=== PATIENT | female | born 1935 | race African-American/Black ===

== ENCOUNTER 2017-01-28 05:03 | Inpatient (IN) | payer MEDICARE, MEDICAID ==
[2017-01-28] MEDS ORDERED: ZOFRAN IV ONE (07:13)
--- NOTE | 2017-01-28 07:41 | XRay Report ---
FINAL REPORT EXAM: XR CHEST 1V AP HISTORY: hypertension TECHNIQUE: A portable upright view of the chest was submitted. There are no previous studies available for comparison. FINDINGS: The lungs are hyperinflated. The heart is mildly enlarged. The lungs are not congested. There is a nodule superimposed over the right lung base. Whether this represents a true nodule or a prominent nipple shadow is uncertain. Pleural fluid is not seen. The bones and soft tissues do not show any acute changes. IMPRESSION: COPD. Cardiomegaly. Nipple shadow versus lung nodule in the right lung base. The study should be repeated with nipple markers and to include a lateral view.
[2017-01-28 07:44] LABS: Basophils % (Auto) 0.2 % (0.0-1.8); Eosinophils % (Auto) 0.1 % (0.0-4.3); Hematocrit 40.2 % (30.3-42.9); Hemoglobin 13.3 gm/dl (10.1-14.3); Mean Corpuscular HGB Conc 33 % (30-34); Mean Corpuscular Hemoglobin 32 pg (28-32); Mean Corpuscular Volume 95 fl (79-97); Platelet Count 177 K/mm3 (140-440); Red Blood Count 4.21 M/mm3 (3.65-5.03); Red Cell Distribution Width 12.5 % (13.2-15.2); White Blood Count 5.3 K/mm3 (4.5-11.0)
--- NOTE | 2017-01-28 07:46 | Cat Scan Report ---
FINAL REPORT EXAM: CT HEAD/BRAIN WO CON HISTORY: headache TECHNIQUE: Routine axial imaging was obtained of the brain without IV contrast. FINDINGS: There is uhly-wl-[id number] generalized atrophy. There is no evidence of acute stroke or hemorrhage. The ventricular system is appropriate in size and is symmetric. The basal cisterns appear normal. There are benign basal ganglial calcifications bilaterally. The visualized sinuses are clear. The mastoid air cells are well pneumatized. The calvarium appears intact. IMPRESSION: [id number] generalized atrophy. No evidence of acute stroke or hemorrhage.
[2017-01-28 07:54] LABS: Anion Gap 19 mmol/L; BUN/Creatinine Ratio 20; Blood Urea Nitrogen 16 mg/dL (7-17); Calcium 8.8 mg/dL (8.4-10.2); Carbon Dioxide 27 mmol/L (22-30); Chloride 99.1 mmol/L (98-107); Glucose 95 mg/dL (65-100); INR 0.88 (0.87-1.13); Potassium 4.1 mmol/L (3.6-5.0); Sodium 141 mmol/L (137-145)
[2017-01-28 07:55] LABS: Creatine Kinase MB 2.1 ng/mL (0.0-4.0); Partial Thromboplastin Time 31.9 Sec. (24.2-36.6)
[2017-01-28 07:56] LABS: Alanine Aminotransferase 28 units/L (7-56); Albumin 4.3 g/dL (3.9-5); Albumin/Globulin Ratio 1.3 %; Alkaline Phosphatase 43 units/L (35-129); Creatine Kinase 90 units/L (30-135); Total Protein 7.5 g/dL (6.3-8.2)
--- NOTE | 2017-01-28 07:56 | Emergency Department Report ---
ED General Adult HPI - General Chief complaint: Nausea/Vomiting/Diarrhea Stated complaint: VOMITING/DIZZINESS Time Seen by Provider: 01/28/17 07:12 Source: family, EMS Mode of arrival: Stretcher Limitations: Language Barrier - History of Present Illness Initial comments: According to the patient's daughter she complained of a headache and vomiting at about 3 in the morning. She had dizziness and vertigo. The patient is known to be hypertensive and is compliant with her medication. The family member denies history of renal insufficiency or previous myocardial infarction. There is no history of prior stroke. -: During the night Location: head Severity scale (0 -10): 4 Consistency: now resolved Improves with: none Worsens with: none Associated Symptoms: denies other symptoms Treatments Prior to Arrival: none - Related Data Home Medications Medication Instructions Recorded Confirmed Last Taken Alendronate Sodium [Fosamax] 70 mg PO QWEEK 07/20/13 12/18/14 2 Days Ago ~12/16/14 Atorvastatin (Nf) [Lipitor] 10 mg PO QHS 07/20/13 12/18/14 2 Days Ago ~12/16/14 Hydrochlorothiazide [HCTZ] 25 mg PO QDAY 07/20/13 12/18/14 2 Days Ago ~12/16/14 Citracal + D3 Gummies 1 tab PO DAILY 12/10/14 12/18/14 2 Days Ago ~12/16/14 HCTZ 25 mg PO DAILY 12/10/14 12/18/14 2 Days Ago ~12/16/14 Loratadine 10 mg PO DAILY 12/10/14 12/18/14 2 Days Ago ~12/16/14 Ranitidine HCl 150 mg PO BID 12/10/14 12/18/14 2 Days Ago ~12/16/14 traMADol 50 mg PO PRN PRN 12/10/14 12/18/14 2 Days Ago ~12/16/14 Previous Rx's Medication Instructions Recorded Last Taken Type amLODIPine [Norvasc] 5 mg PO DAILY #30 tab 07/20/13 2 Days Ago Rx ~12/16/14 Allergies Allergy/AdvReac Type Severity Reaction Status Date / Time No Known Allergies Allergy Verified 07/20/13 02:58 ED Review of Systems ROS: Stated complaint: VOMITING/DIZZINESS Other details as noted in HPI Constitutional: denies: chills, fever Eyes: denies: eye pain, eye discharge, vision change ENT: denies: ear pain, throat pain Respiratory: denies: cough, shortness of breath, wheezing Cardiovascular: denies: chest pain, palpitations Endocrine: no symptoms reported Gastrointestinal: denies: abdominal pain, nausea, diarrhea Genitourinary: denies: urgency, dysuria, discharge Musculoskeletal: denies: back pain, joint swelling, arthralgia Skin: denies: rash, lesions Neurological: vertigo. denies: headache, weakness, numbness, paresthesias Psychiatric: denies: anxiety, depression Hematological/Lymphatic: denies: easy bleeding, easy bruising ED Past Medical Hx - Past Medical History Previous Medical History?: Yes Hx Hypertension: Yes Hx GERD: Yes Additional medical history: high cholesterol - Surgical History Past Surgical History?: No - Social History Smoking Status: Never Smoker Substance Use Type: None - Medications Home Medications: Home Medications Medication Instructions Recorded Confirmed Last Taken Type Alendronate Sodium [Fosamax] 70 mg PO QWEEK 07/20/13 12/18/14 2 Days Ago History ~12/16/14 Atorvastatin (Nf) [Lipitor] 10 mg PO QHS 07/20/13 12/18/14 2 Days Ago History ~12/16/14 Hydrochlorothiazide [HCTZ] 25 mg PO QDAY 07/20/13 12/18/14 2 Days Ago History ~12/16/14 amLODIPine [Norvasc] 5 mg PO DAILY #30 tab 07/20/13 12/18/14 2 Days Ago Rx ~12/16/14 Citracal + D3 Gummies 1 tab PO DAILY 12/10/14 12/18/14 2 Days Ago History ~12/16/14 HCTZ 25 mg PO DAILY 12/10/14 12/18/14 2 Days Ago History ~12/16/14 Loratadine 10 mg PO DAILY 12/10/14 12/18/14 2 Days Ago History ~12/16/14 Ranitidine HCl 150 mg PO BID 12/10/14 12/18/14 2 Days Ago History ~12/16/14 traMADol 50 mg PO PRN PRN 12/10/14 12/18/14 2 Days Ago History ~12/16/14 ED Physical Exam - General Limitations: Language Barrier General appearance: alert, in no apparent distress - Head Head exam: Present: atraumatic, normocephalic - Eye Eye exam: Present: normal appearance. Absent: scleral icterus - ENT ENT exam: Present: mucous membranes moist - Neck Neck exam: Present: normal inspection. Absent: tenderness, meningismus - Respiratory Respiratory exam: Present: normal lung sounds bilaterally. Absent: respiratory distress - Cardiovascular Cardiovascular Exam: Present: regular rate, normal rhythm. Absent: systolic murmur, diastolic murmur, rubs, gallop - GI/Abdominal GI/Abdominal exam: Present: soft, normal bowel sounds. Absent: distended, tenderness, guarding, rebound, rigid - Extremities Exam Extremities exam: Present: normal inspection - Back Exam Back exam: Present: normal inspection - Neurological Exam Neurological exam: Present: alert, oriented X3, CN II-XII intact. Absent: motor sensory deficit - Psychiatric Psychiatric exam: Present: normal affect, normal mood - Skin Skin exam: Present: warm, dry, intact, normal color. Absent: rash ED Course Vital Signs 01/28/17 01/28/17 01/28/17 06:10 07:26 07:30 Temperature 98.8 F 98.8 F Pulse Rate 75 67 67 Respiratory 18 14 14 Rate Blood Pressure 173/87 150/79 [Left] O2 Sat by Pulse 99 98 98 Oximetry - Reevaluation(s) Reevaluation #1: I discussed the case with Dr. Johnson. Dr. Perez to admit. 01/28/17 09:08 ED Medical Decision Making - Lab Data Result diagrams: 01/28/17 07:17 01/28/17 07:17 Laboratory Results - last 24 hr 01/28/17 01/28/17 01/28/17 07:17 07:17 07:17 WBC 5.3 RBC 4.21 Hgb 13.3 Hct 40.2 MCV 95 MCH 32 MCHC 33 RDW 12.5 L Plt Count 177 Lymph % (Auto) 10.2 L [place] % (Auto) 5.2 Eos % (Auto) 0.1 Baso % (Auto) 0.2 Lymph # 0.5 L [place] # 0.3 Eos # 0.0 Baso # 0.0 Seg Neutrophils % 84.3 H Seg Neutrophils # 4.5 PT 12.4 INR 0.88 APTT 31.9 Sodium 141 Potassium 4.1 Chloride 99.1 Carbon Dioxide 27 Anion Gap 19 BUN 16 Creatinine 0.8 Estimated GFR > 60 BUN/Creatinine Ratio 20 Glucose 95 Calcium 8.8 Magnesium Total Bilirubin Direct Bilirubin Indirect Bilirubin AST ALT Alkaline Phosphatase Total Creatine Kinase CK-MB (CK-2) CK-MB (CK-2) Rel Index Troponin T NT-Pro-B Natriuret Pep Total Protein Albumin Albumin/Globulin Ratio 01/28/17 07:17 WBC RBC Hgb Hct MCV MCH MCHC RDW Plt Count Lymph % (Auto) [place] % (Auto) Eos % (Auto) Baso % (Auto) Lymph # [place] # Eos # Baso # Seg Neutrophils % Seg Neutrophils # PT INR APTT Sodium Potassium Chloride Carbon Dioxide Anion Gap BUN Creatinine Estimated GFR BUN/Creatinine Ratio Glucose Calcium Magnesium 2.00 Total Bilirubin 0.30 Direct Bilirubin < 0.2 Indirect Bilirubin 0.1 AST 34 ALT 28 Alkaline Phosphatase 43 Total Creatine Kinase 90 CK-MB (CK-2) 2.1 CK-MB (CK-2) Rel Index 2.3 Troponin T < 0.010 NT-Pro-B Natriuret Pep 186.1 Total Protein 7.5 Albumin 4.3 Albumin/Globulin Ratio 1.3 - EKG Data -: EKG Interpreted by Me EKG shows normal: sinus rhythm - EKG Data Interpretation: other (right bundle branch block, left anterior fascicular block , bifascicular block) - Radiology Data Radiology results: report reviewed interpreted by me: CT head no acute process, chest x-ray nipple shadow versus nodule Critical care attestation.: If time is entered above; I have spent that time in minutes in the direct care of this critically ill patient, excluding procedure time. ED Disposition Clinical Impression: Vertigo, Bifascicular block, Uncontrolled hypertension, Cachexia Disposition: -09 OP ADMIT IP TO THIS HOSP Is pt being admited?: Yes Does the pt Need Aspirin: Yes Condition: Stable Instructions: Hypertension (ED) Referrals: SEAN NORIEGA MD [Primary Care Provider] - 3-5 Days Time of Disposition: 08:35
[2017-01-28] MEDS ORDERED: NACL 0.9% 1000 ML 1,000 ML IV ONE (08:00)
[2017-01-28 08:09] LABS: Bilirubin,Direct < 0.2 mg/dL (0-0.2); Bilirubin,Indirect 0.1 mg/dL
[2017-01-28] MEDS ORDERED: ANTIVERT PO ONE (08:14)
[2017-01-28] MEDS ORDERED: BABY ASPIRIN PO ONE (08:35)
[2017-01-28] MEDS ORDERED: DUONEB *Not for PRN Use IH ONE ×2 (09:31→09:32)
[2017-01-28] MEDS ORDERED: APRESOLINE IV PRN (10:30)
--- NOTE | 2017-01-28 10:30 | History and Physical Report ---
History of Present Illness Date of admission: 01/28/17 08:42 Chief complaint: vertigo History of present illness: 81 year old woman who presents from home. History was done using an top tile decorator. And history was taken from the patient on the patient's son. Apparently at about 2 a.m, The patient woke up was having vertigo, felt that the room was spinning, became nauseous and then vomited. It appeared at that time to the symptoms had resolved, . But shortly after she had vertigo again , assoc with BRODERICK and vomited again. Prompting had to come to the hospital. Past medical history significant for hypertension come on hyperlipidemia, gerd , erosive gastritis diagnose an EGD Past History Past Medical History: GERD (erosive gastritis), hypertension, hyperlipidemia Past Surgical History: No surgical history Social history: lives with family Family history: hypertension Medications and Allergies Allergies Allergy/AdvReac Type Severity Reaction Status Date / Time No Known Allergies Allergy Verified 07/20/13 02:58 Home Medications Medication Instructions Recorded Confirmed Last Taken Type Alendronate Sodium [Fosamax] 70 mg PO QWEEK 07/20/13 01/28/17 2 Days Ago History ~12/16/14 Atorvastatin (Nf) [Lipitor] 10 mg PO QHS 07/20/13 01/28/17 2 Days Ago History ~12/16/14 Hydrochlorothiazide [HCTZ] 25 mg PO QDAY 07/20/13 01/28/17 2 Days Ago History ~12/16/14 amLODIPine [Norvasc] 5 mg PO DAILY #30 tab 07/20/13 01/28/17 2 Days Ago Rx ~12/16/14 Citracal + D3 Gummies 1 tab PO DAILY 12/10/14 01/28/17 2 Days Ago History ~12/16/14 HCTZ 25 mg PO DAILY 12/10/14 01/28/17 2 Days Ago History ~12/16/14 Loratadine 10 mg PO DAILY 12/10/14 01/28/17 2 Days Ago History ~12/16/14 Ranitidine HCl 150 mg PO BID 12/10/14 01/28/17 2 Days Ago History ~12/16/14 traMADol 50 mg PO PRN PRN 12/10/14 01/28/17 2 Days Ago History ~12/16/14 Active Meds: Active Medications Sodium Chloride (Nacl 0.9% 1000 Ml) 1,000 mls @ 75 mls/hr IV ONCE ONE Stop: 01/28/17 21:19 Last Admin: 01/28/17 09:01 Dose: 75 mls/hr Review of Systems All systems: negative (14 system review is otherwise negative) Gastrointestinal: nausea, vomiting Neurological: vertigo, other (strange sensation, ?ringing in R ear) Exam - Constitutional Vitals: Temp Pulse Resp BP Pulse Ox 98.8 F 82 18 150/79 98 01/28/17 07:30 01/28/17 09:51 01/28/17 09:51 01/28/17 07:30 01/28/17 07:30 General appearance: Present: no acute distress, well-nourished - EENT Eyes: Present: PERRL ENT: hearing intact, clear oral mucosa - Neck Neck: Present: supple, normal ROM - Respiratory Respiratory effort: normal Respiratory: bilateral: CTA - Cardiovascular Heart Sounds: Present: S1 & S2. Absent: rub, click - Extremities Extremities: pulses symmetrical, No edema Peripheral Pulses: within normal limits - Abdominal General gastrointestinal: Present: soft, non-tender, non-distended, normal bowel sounds Female genitourinary: Present: normal - Integumentary Integumentary: Present: clear, warm, dry - Musculoskeletal Musculoskeletal: gait normal, strength equal bilaterally - Psychiatric Psychiatric: appropriate mood/affect, intact judgment & insight - Neurologic Neurologic: CNII-XII intact, moves all extremities, other (unsteady gait) Results - Labs CBC & Chem 7: 01/29/17 04:44 01/29/17 04:44 Labs: Laboratory Last Values WBC 5.3 K/mm3 (4.5-11.0) 01/28/17 07:17 RBC 4.21 M/mm3 (3.65-5.03) 01/28/17 07:17 Hgb 13.3 gm/dl (10.1-14.3) 01/28/17 07:17 Hct 40.2 % (30.3-42.9) 01/28/17 07:17 MCV 95 fl (79-97) 01/28/17 07:17 MCH 32 pg (28-32) 01/28/17 07:17 MCHC 33 % (30-34) 01/28/17 07:17 RDW 12.5 % (13.2-15.2) L 01/28/17 07:17 Plt Count 177 K/mm3 (140-440) 01/28/17 07:17 Lymph % (Auto) 10.2 % (13.4-35.0) L 01/28/17 07:17 [place] % (Auto) 5.2 % (0.0-7.3) 01/28/17 07:17 Eos % (Auto) 0.1 % (0.0-4.3) 01/28/17 07:17 Baso % (Auto) 0.2 % (0.0-1.8) 01/28/17 07:17 Lymph # 0.5 K/mm3 (1.2-5.4) L 01/28/17 07:17 [place] # 0.3 K/mm3 (0.0-0.8) 01/28/17 07:17 Eos # 0.0 K/mm3 (0.0-0.4) 01/28/17 07:17 Baso # 0.0 K/mm3 (0.0-0.1) 01/28/17 07:17 Seg Neutrophils % 84.3 % (40.0-70.0) H 01/28/17 07:17 Seg Neutrophils # 4.5 K/mm3 (1.8-7.7) 01/28/17 07:17 PT 12.4 Sec. (12.2-14.9) 01/28/17 07:17 INR 0.88 (0.87-1.13) 01/28/17 07:17 APTT 31.9 Sec. (24.2-36.6) 01/28/17 07:17 Sodium 141 mmol/L (137-145) 01/28/17 07:17 Potassium 4.1 mmol/L (3.6-5.0) 01/28/17 07:17 Chloride 99.1 mmol/L (98-107) 01/28/17 07:17 Carbon Dioxide 27 mmol/L (22-30) 01/28/17 07:17 Anion Gap 19 mmol/L 01/28/17 07:17 BUN 16 mg/dL (7-17) 01/28/17 07:17 Creatinine 0.8 mg/dL (0.7-1.2) 01/28/17 07:17 Estimated GFR > 60 ml/min 01/28/17 07:17 BUN/Creatinine Ratio 20 % 01/28/17 07:17 Glucose 95 mg/dL (65-100) 01/28/17 07:17 Calcium 8.8 mg/dL (8.4-10.2) 01/28/17 07:17 Magnesium 2.00 mg/dL (1.7-2.3) 01/28/17 07:17 Total Bilirubin 0.30 mg/dL (0.1-1.2) 01/28/17 07:17 Direct Bilirubin < 0.2 mg/dL (0-0.2) 01/28/17 07:17 Indirect Bilirubin 0.1 mg/dL 01/28/17 07:17 AST 34 units/L (5-40) 01/28/17 07:17 ALT 28 units/L (7-56) 01/28/17 07:17 Alkaline Phosphatase 43 units/L (35-129) 01/28/17 07:17 Total Creatine Kinase 90 units/L (30-135) 01/28/17 07:17 CK-MB (CK-2) 2.1 ng/mL (0.0-4.0) 01/28/17 07:17 CK-MB (CK-2) Rel Index 2.3 (0-4) 01/28/17 07:17 Troponin T < 0.010 ng/mL (0.00-0.029) 01/28/17 07:17 NT-Pro-B Natriuret Pep 186.1 pg/mL (0-900) 01/28/17 07:17 Total Protein 7.5 g/dL (6.3-8.2) 01/28/17 07:17 Albumin 4.3 g/dL (3.9-5) 01/28/17 07:17 Albumin/Globulin Ratio 1.3 % 01/28/17 07:17 - Imaging and Cardiology Chest x-ray: image reviewed (no acute pathology) CT Scan - head: image reviewed (no acute findings) Assessment and Plan Assessment and plan: 81F who presents with vertigo assoc with Vomiting Vertigo: etiology is likely from inner ear meclizine, supportive care, Anti-emetics as needed hold hct as may be contributing to inner ear syndrome Vomiting due to vertigo, rx as above Htn urgency restart home meds -prn hydralazine as needed GERD continue PPI dvt ppx lmwh Plan of care discussed with patient/family: Yes
[2017-01-28] MEDS ORDERED: ZOFRAN IV PRN (11:17)
[2017-01-28] MEDS ORDERED: DULCOLAX PR PRN (11:17)
[2017-01-28] MEDS ORDERED: TYLENOL PO PRN (11:17)
[2017-01-28] MEDS ORDERED: NACL 0.9% 1000 ML 1,000 ML IV SCH (12:00)
--- NOTE | 2017-01-28 12:25 | XRay Report ---
Chest 2 views: Findings: Borderline cardiomegaly. Trachea is midline. Evidence of emphysema. No acute consolidation or pleural effusion. Impression: Emphysema. No acute lung changes.
[2017-01-28] MEDS: PEPCID PO SCH ×2 (16:46→22:10)
[2017-01-28] MEDS ORDERED: NON-FORMULARY (Ranitidine Hcl 150 MG) PO SCH (22:00)
[2017-01-29 05:34] LABS: Basophils % (Auto) 0.5 % (0.0-1.8); Eosinophils % (Auto) 1.3 % (0.0-4.3); Hematocrit 38.4 % (30.3-42.9); Hemoglobin 12.6 gm/dl (10.1-14.3); Mean Corpuscular HGB Conc 33 % (30-34); Mean Corpuscular Hemoglobin 32 pg (28-32); Mean Corpuscular Volume 96 fl (79-97); Platelet Count 170 K/mm3 (140-440); Red Blood Count 4.01 M/mm3 (3.65-5.03); Red Cell Distribution Width 12.4 % (13.2-15.2); White Blood Count 4.2 K/mm3 (4.5-11.0)
[2017-01-29 05:53] LABS: Calcium 7.9 mg/dL (8.4-10.2); Chloride 108.1 mmol/L (98-107); Potassium 3.9 mmol/L (3.6-5.0)
[2017-01-29] MEDS ORDERED: ANTIVERT PO PRN (06:12)
[2017-01-29 08:04] LABS: Bilirubin,Urine NEG (Negative); Blood,Urine NEG (Negative); Ketones,Urine NEG (Negative); Leukocyte Esterase,Urine NEG (Negative); Nitrite,Urine NEG (Negative); Protein,Urine <15 mg/dL mg/dL (Negative); RBC,Urine < 1.0 /HPF (0.0-6.0); Urobilinogen,Urine < 2.0 mg/dL (<2.0); WBC,Urine < 1.0 /HPF (0.0-6.0)
[2017-01-29] MEDS: PEPCID PO SCH ×2 (09:50→22:56)
[2017-01-29] MEDS ORDERED: NON-FORMULARY (Hctz 25 MG) PO SCH (10:00)
[2017-01-29] MEDS ORDERED: NORVASC PO SCH ×2 (10:00→13:20)
[2017-01-29] MEDS ORDERED: HCTZ PO SCH (10:00)
--- NOTE | 2017-01-29 13:21 | Progress Note ---
Assessment and Plan 81F who presents with vertigo and associated Vomiting /Vertigo: etiology is likely from inner ear meclizine, supportive care, Anti-emetics as needed hold hctz as may be contributing to inner ear syndrome will obtain orthostatic vitals /Vomiting due to vertigo, rx as above /Htn urgency restart home meds, increase amlodipine to 10 mg daily -prn hydralazine as needed /dysphagia will do speech eval /GERD continue PPI /dvt ppx lovenox Radiological data: Chest x-ray: image reviewed (no acute pathology) CT Scan - head: image reviewed (no acute findings) Subjective Date of service: 01/29/17 Interval history: Pt seen and examined still c/o dizziness updated son at bedside also c/o intermittent chocking while eating Objective - Constitutional Vitals: Vital Signs - 12hr 01/29/17 01/29/17 01/29/17 03:58 08:01 09:50 Temperature 97.9 F 98.1 F Pulse Rate 58 L 59 L 69 Respiratory 20 14 Rate Blood Pressure 141/72 154/76 O2 Sat by Pulse 99 98 Oximetry - Labs CBC & Chem 7: 01/29/17 04:44 01/30/17 04:30 Labs: Abnormal lab results 01/29/17 01/29/17 Range/Units 04:44 04:44 WBC 4.2 L (4.5-11.0) K/mm3 RDW 12.4 L (13.2-15.2) % [place] % (Auto) 12.6 H (0.0-7.3) % Lymph # 1.0 L (1.2-5.4) K/mm3 Sodium 146 H (137-145) mmol/L Chloride 108.1 H (98-107) mmol/L Calcium 7.9 L (8.4-10.2) mg/dL
[2017-01-29] MEDS: NORVASC PO SCH (14:52)
[2017-01-29] MEDS: NACL 0.45% 1000 ML 1,000 ML IV SCH (14:54)
[2017-01-29] MEDS: LOVENOX SUB-Q SCH (22:56)
[2017-01-30] MEDS: NACL 0.45% 1000 ML 1,000 ML IV SCH (04:03)
[2017-01-30 06:15] LABS: Anion Gap 15 mmol/L; BUN/Creatinine Ratio 9; Blood Urea Nitrogen 7 mg/dL (7-17); Calcium 8.2 mg/dL (8.4-10.2); Carbon Dioxide 29 mmol/L (22-30); Chloride 101.1 mmol/L (98-107); Glucose 88 mg/dL (65-100); Potassium 3.6 mmol/L (3.6-5.0); Sodium 141 mmol/L (137-145)
[2017-01-30] MEDS: NORVASC PO SCH (10:42)
[2017-01-30] MEDS: PEPCID PO SCH ×2 (10:42→21:39)
--- NOTE | 2017-01-30 11:11 | Cat Scan Report ---
CT ABDOMEN AND PELVIS WITHOUT CONTRAST INDICATION: Right lumbar pain. COMPARISON: 03/31/2014 CT. FINDINGS: Noncontrast abdomen and pelvis CT performed. LUNG BASES: Mild cardiomegaly again noted. ABDOMEN: Please note that sensitivity to detect small visceral lesions is limited due to the absence of intravenous or oral contrast. Approximately 5 mm indeterminate hepatic dome hypodensity anteriorly again noted as on axial image 21, series 2. Stable biliary prominence in the left hepatic lobe adjacent to the portal vein as on axial image 60. Otherwise grossly unremarkable unenhanced liver, spleen, gallbladder, pancreas, adrenals, nonaneurysmal abdominal aorta with few atherosclerotic calcifications and non-hydronephrotic kidneys. A small, 2 mm nonobstructing right lower renal calculus incidentally noted, axial image 129. No ascites or definite size significant adenopathy. Opacified GI tract evaluation limited, though grossly nonobstructive. Stomach appears distended with ingested debris. Normal appendix. PELVIS: Mild to moderate rectosigmoid stool/possible constipation. Grossly unremarkable non-opacified urinary bladder. Age-appropriate uterus situated in the left hemipelvis. No free fluid or definite significant adenopathy. Severe L5-S1 disc narrowing with vacuum disc phenomena and mild degenerative spurring again noted. Osteopenia/osteoporosis. CONCLUSION: Various incidental findings on this unenhanced exam, including cardiomegaly, small nonobstructing right renal calculus, possible constipation and L5-S1 disc degeneration, amongst others, as above. Please correlate. Thank you for the opportunity to participate in this patient's care.
--- NOTE | 2017-01-30 16:51 | Magnetic Resonance Report ---
FINAL REPORT EXAM: MR BRAIN WO CON HISTORY: dizziness TECHNIQUE: MRI brain without contrast PRIORS: None. FINDINGS: There are scattered patchy areas of increased T2 signal seen in the supratentorial white matter on FLAIR sequence likely reflecting mild chronic small vessel ischemic change. No evidence for brain edema pattern or mass effect. Ventricles and sulci are within normal limits. No evidence for acute intra-axial or extra-axial hemorrhage. No evidence for acute restriction on diffusion-weighted study. Brainstem and posterior fossa structures are unremarkable. IMPRESSION: Chronic small vessel ischemic changes Otherwise no acute findings
[2017-01-30] MEDS: PROTONIX PO SCH (17:58)
--- NOTE | 2017-01-30 18:37 | Progress Note ---
Assessment and Plan 81F who presents with vertigo and associated Vomiting /Vertigo: etiology is likely from inner ear meclizine, supportive care, Anti-emetics as needed hold hctz as may be contributing to inner ear syndrome Normal orthostatic vitals CT/MRI negative without any acute finding will follow PT recommendation /Vomiting due to vertigo, rx as above /Htn urgency restart home meds, increase amlodipine to 10 mg daily -prn hydralazine as needed /dysphagia Tolerating regular diet, speech eval today /GERD continue PPI /dvt ppx lovenox Disposition: d/c when symptom improved Radiological data: Chest x-ray: image reviewed (no acute pathology) CT Scan - head: image reviewed (no acute findings) MRI head - no acute infract Physical exam: General appearance: Present: no acute distress, well-nourished - EENT Eyes: Present: PERRL ENT: hearing intact, clear oral mucosa - Neck Neck: Present: supple, normal ROM - Respiratory Respiratory effort: normal Respiratory: bilateral: CTA - Cardiovascular Heart Sounds: Present: S1 & S2. Absent: rub, click - Extremities Extremities: pulses symmetrical, No edema Peripheral Pulses: within normal limits - Abdominal General gastrointestinal: Present: soft, non-tender, non-distended, normal bowel sounds Female genitourinary: Present: normal - Integumentary Integumentary: Present: clear, warm, dry - Musculoskeletal Musculoskeletal: gait normal, strength equal bilaterally - Psychiatric Psychiatric: appropriate mood/affect, intact judgment & insight - Neurologic Neurologic: CNII-XII intact, moves all extremities, other (unsteady gait) Subjective Date of service: 01/30/17 Interval history: Pt seen and examined still c/o dizziness with minimal movement updated family at bedside Objective - Constitutional Vitals: Vital Signs - 12hr 01/30/17 01/30/17 01/30/17 07:50 08:18 10:00 Temperature 98.5 F 99.5 F Pulse Rate 66 Respiratory 16 22 Rate Blood Pressure 128/75 O2 Sat by Pulse 98 100 Oximetry 01/30/17 01/30/17 01/30/17 10:30 10:36 11:42 Temperature Pulse Rate 66 Respiratory 20 Rate Blood Pressure 166/90 O2 Sat by Pulse Oximetry 01/30/17 01/30/17 11:52 16:41 Temperature 99.0 F 99.1 F Pulse Rate 65 74 Respiratory 16 18 Rate Blood Pressure 141/75 171/90 O2 Sat by Pulse 100 99 Oximetry - Labs CBC & Chem 7: 01/29/17 04:44 01/30/17 04:30 Labs: Abnormal lab results 01/30/17 Range/Units 04:30 Calcium 8.2 L (8.4-10.2) mg/dL
[2017-01-30] MEDS: LOVENOX SUB-Q SCH (21:39)
[2017-01-31] MEDS: PROTONIX PO SCH (10:40)
[2017-01-31] MEDS: PEPCID PO SCH (10:40)
[2017-01-31] MEDS: NORVASC PO SCH (10:40)
[2017-01-31 12:05] VITALS: BP 140/84
--- NOTE | 2017-01-31 15:29 | Discharge Summary ---
Providers - Providers Date of Admission: 01/28/17 08:42 Date of discharge: 01/31/17 Attending physician: JOIE CHADWICK 01/29/17 13:18 Physical Therapy Evaluation and Treat [CONS] Routine Comment: Reason For Exam: d/c clearance 01/30/17 08:34 Speech Therapy Evaluation and Treat [CONS] Routine Reason For Exam: dysphagia Primary care physician: SEAN NORIEGA Hospitalization Condition: Stable Hospital course: Israeli freelance interpreter/translator used. Symptoms are improved. 81F who presents with vertigo and associated Vomiting Vertigo: etiology is likely from inner ear meclizine, supportive care, Anti-emetics as needed hold hctz as may be contributing to inner ear syndrome Normal orthostatic vitals CT/MRI negative without any acute finding will follow PT recommendation Vomiting due to vertigo, rx as above Htn urgency restart home meds, increase amlodipine to 10 mg daily -prn hydralazine as needed Dysphagia Tolerating regular diet, speech eval today GERD continue PPI DVT ppx lovenox Disposition: d/c when symptom improved Disposition: DC/[place]-06 HOME [facility] Time spent for discharge: 34 minutes Core Measure Documentation - Palliative Care Palliative Care/ Comfort Measures: Not Applicable - Core Measures Any of the following diagnoses?: none - VTE Discharge Requirements Deep Vein Thrombosis/Pulmonary Embolism Present on Admission: No Has pt received <5 days of overlap therapy or INR<2.0: No Anticoagulant overlap therapy prescribed at discharge: No Contraindication No Overlap Therapy order at DC: Not Indicated Exam - Physical Exam Narrative exam: GEN: WDWN, NAD, AWAKE, ALERT, ORIENTATED x 3 HEENT: NCAT, EOMI, PERRL, OP Clear NECK: supple, no adenopathy, no thyromegaly, no JVD CVS/HEART: RRR, NORMAL S1S2, NO JVD, pulses present bilaterally CHEST/LUNGS: CTA B, Symmetrical chest expansion, good air entry bilaterally GI/Abdomen: soft, NTND, good bowel sounds, no guarding or rebound /Bladder: no suprapubic tenderness, no CVA or paraspinal tenderness EXT/Skin: no c/c/e, no obvious rash MSK: FROM x 4 Neuro: CN 2-12 grossly intact, no new focal deficits Psych: calm - Constitutional Vitals: Temp Pulse Resp BP Pulse Ox 98.5 F 73 20 140/84 97 01/31/17 12:04 01/31/17 12:04 01/31/17 12:04 01/31/17 12:04 01/31/17 12:04 Plan Activity: other Diet: advance as tolerated (no strenous activity until cleared by pcp) Follow up with: SEAN NORIEGA MD [Primary Care Provider] - 3-5 Days
--- NOTE | 2017-02-07 10:16 | Query- Nutrition ---
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 Questions asked do not imply a particular answer is desired or expected. We greatly appreciate your clarification on this issue. Clinical Documentation States: 81 year old female was admitted on 01/28/17 The Discharge summary (Dr. thakur) states " 81F who presents with vertigo and associated Vomiting GERD " The Ed documentation states " Clinical Impression: Cachexia " Clinical Findings Show: BMI: 17.8 Please select the most appropriate option 3 [] Mild Malnutrition [x] Mild - Moderate Malnutrition [] Moderate - Severe Malnutrition [] Severe Malnutrition Serum Albumin 2.8 to 3.4 g/dl or Pre-albumin 5 to 17 mg/dl1,2 Inadequate nutritional intake1,2,3,4 NPO > 5 days Weight loss: 5% in 1 month or 7.5% in 3 months or 10% in 6 months1, 3,4 BMI 16 to 18.4 or Weight <90% of ideal body weight1,2,3,4 Serum Albumin < 2.8 g/ dl1,2 Lymphocytes < 1500/ L2 Inadequate nutritional intake3, high stress e.g. major trauma, sepsis,pancreatitis, moe etc. Decubitus ulcers1,2, , skin breakdown2, easy hair pluckability2 Weight <80% standard for height2 Triceps skin fold <3 mm2 Mid-arm muscle circumference <15 cm2 Creatinine-height index <60% standard2 [ ] Cachexia [ ] Emaciated w/Malnutrition [ ] Other: [ ] Unable to determine [ ] Comment/Explanation: Present on Admission: [x ] Yes (Y) [ ] Clinically undeterminable (W) [ ] No (N) Please also document response in your Progress Notes and/or Discharge Summary and indicate if the condition was present on admission. MTDD
== END 2017-01-31 13:44 | disposition home health service (06) | DRG 149 ==
LOC: ED 05:03 → 4A 08:42
PROVIDERS: ADMIT Internal Medicine; ATTEND Internal Medicine
DX: R42 Dizziness and giddiness (principal); E44.0 Moderate protein-calorie malnutrition; I45.2 Bifascicular block; R64 Cachexia; Z68.1 Body mass index [BMI] 19.9 or less, adult; K21.9 Gastro-esophageal reflux disease without esophagitis; I16.0 Hypertensive urgency; I10 Essential (primary) hypertension; E78.00 Pure hypercholesterolemia, unspecified; R13.10 Dysphagia, unspecified; Z82.49 Family history of ischemic heart disease and other diseases of the circulatory system; Z79.899 Other long term (current) drug therapy
CPT/HCPCS: 36415; 70450; 70551; 71010; 71020; 74176; 80048; 80074; 81001; 82550; 82553; 83735; 83880; 84439; 84443; 84484; 85025; 85610; 85730; 93005; 93010; 94640; 96361; 96374; A9270-GY; G8978-GP; G8979-GP; G8996-GN; G8997-GN; J1650; J2405; J7030